=== PATIENT | male | born 1980 | race Hispanic/Latino ===

== ENCOUNTER 2022-12-26 18:47 | Inpatient (IN) | payer OTHER ==
[~2022-12-26] VITALS: Ht 167.6 cm; Wt 71.9 kg
[2022-12-26 20:41] LABS: BASOPHILS % (AUTO) 1.6 % (0.0-5.0); EOSINOPHILS % (AUTO) 12.4 % (0.0-8.0); HEMATOCRIT 44.3 % (42-54); MEAN CORPUSCULAR HEMOGLOBIN 28.5 pg (27.0-33.0); MEAN CORPUSCULAR HGB CONC 33.6 g/dL (32.0-36.0); MEAN CORPUSCULAR VOLUME 84.9 fL (79-99); MONOCYTES % (AUTO) 12.3 % (3.0-13.0); NEUTROPHILS % (AUTO) 51.4 % (40.0-77.0); PLATELET COUNT (AUTO) 238 K/uL (130-400); RED BLOOD CELL COUNT(AUTO) 5.22 MIL/uL (4.50-6.20); RED CELL DISTRIBUTION WIDTH 12.3 % (11.0-15.5); WHITE BLOOD COUNT (AUTO) 6.8 K/uL (4.8-10.8)
[2022-12-26 20:57] LABS: ALBUMIN 3.8 g/dL (3.5-5.0); CREATININE 0.9 mg/dL (0.5-1.5); POTASSIUM 4.2 mmol/L (3.5-5.1); TOTAL PROTEIN, SERUM 7.6 g/dL (6.0-8.3)
[2022-12-26] MEDS ORDERED: 0.9%NACL 1000ML 2,000 ML IV ONE (21:30)
[2022-12-26 22:02] LABS: APPEARANCE,URINE CLEAR (CLEAR); BILIRUBIN,URINE NEGATIVE (NEGATIVE); COLOR,URINE COLORLESS (YELLOW); GLUCOSE, URINE (UA) >=1000 mg/dL (NEGATIVE); KETONES,URINE 5 mg/dL (NEGATIVE); LEUKOCYTE ESTERASE ,URINE NEGATIVE Leu/uL (NEGATIVE); NITRATE,URINE NEGATIVE (NEGATIVE); OCCULT BLOOD,URINE NEGATIVE (NEGATIVE); PH,URINE 5.5 (5.0-8.0); PROTEIN,URINE NEGATIVE (NEGATIVE); UROBILINOGEN,URINE 0.2 mg/dL (0.2-1.0)
[2022-12-26 22:04] LABS: AMPHET/METH SCREEN,URINE NEGATIVE (NEGATIVE); BARBITURATE SCREEN, URINE NEGATIVE (NEGATIVE); BENZODIAZEPINES SCREEN,URINE NEGATIVE (NEGATIVE); CANNABINOID SCREEN,URINE NEGATIVE (NEGATIVE); COCAINE SCREEN,URINE POSITIVE (NEGATIVE); OPIATE SCREEN,URINE NEGATIVE (NEGATIVE); PHENCYCLIDINE SCREEN,URINE NEGATIVE (NEGATIVE)
[2022-12-26 22:07] LABS: SQUAMOUS EPITHELIAL CELL,UR RARE /HPF (0-2)
[2022-12-26] MEDS ORDERED: ASPIRIN 325MG TAB ONE (22:27)
[2022-12-26] MEDS ORDERED: ASPIRIN 325MG TAB PO ONE (22:30)
[2022-12-26 22:57] LABS: ABG BASE EXCESS -4.2 mmol/L (-2.0-3.0); ABG HCO3 20.6 mmol/L (21.0-28.0); ABG OXYGEN SATURATION 94.8 % (95.0-99.0); ABG PCO2 37 mmHg (35-48)
[2022-12-26] MEDS ORDERED: DIAZEPAM 5 MG/ML 2 ML SYG IVP ONE (23:30)
[2022-12-26] MEDS ORDERED: MAGNESIUM 2GM PREMIX 50ML 50 ML IV PRN (23:30)
[2022-12-26] MEDS ORDERED: ACETAMINOPHEN 325 MG TAB PO PRN ×2 (23:30)
[2022-12-26] MEDS ORDERED: POTASSIUM CHLORIDE 10% ELIXIR 20 MEQ/15 ML UDCUP PO PRN (23:30)
[2022-12-26] MEDS ORDERED: ONDANSETRON 4MG INJ IV PRN (23:30)
[2022-12-26] MEDS ORDERED: KETOROLAC 30MG VIAL (30MG/ML) IVP ONE (23:30)
[2022-12-26] MEDS ORDERED: MORPHINE 2 MG SYG IVP ONE (23:30)
[2022-12-26] MEDS ORDERED: POTASSIUM CHLORIDE 20MEQ/100ML 100 ML IV PRN (23:30)
[2022-12-26] MEDS ORDERED: KCL 20 MEQ ERTAB PO PRN (23:30)
[2022-12-26] MEDS ORDERED: DIAZEPAM 5 MG/ML 2 ML SYG IV PRN (23:30)
[2022-12-26] MEDS: LACTATED RINGERS 1000ML 1,000 ML IV SCH (23:59)
[2022-12-27] MEDS ORDERED: PHARMACY COMMUNICATION MISC SCH
[2022-12-27 06:40] LABS: BASOPHILS % (AUTO) 1.1 % (0.0-5.0); EOSINOPHILS % (AUTO) 8.2 % (0.0-8.0); HEMATOCRIT 39.1 % (42-54); LYMPHOCYTES % (AUTO) 30.6 % (21.0-51.0); MEAN CORPUSCULAR HEMOGLOBIN 28.7 pg (27.0-33.0); MEAN CORPUSCULAR HGB CONC 33.5 g/dL (32.0-36.0); MEAN CORPUSCULAR VOLUME 85.7 fL (79-99); MONOCYTES % (AUTO) 9.7 % (3.0-13.0); PLATELET COUNT (AUTO) 188 K/uL (130-400); RED BLOOD CELL COUNT(AUTO) 4.56 MIL/uL (4.50-6.20); RED CELL DISTRIBUTION WIDTH 12.3 % (11.0-15.5); WHITE BLOOD COUNT (AUTO) 8.2 K/uL (4.8-10.8)
[2022-12-27 06:52] LABS: CREATININE 0.7 mg/dL (0.5-1.5); MAGNESIUM 1.6 mg/dL (1.80-2.40); PHOSPHORUS 3.4 mg/dL (2.5-4.9); POTASSIUM 3.7 mmol/L (3.5-5.1)
[2022-12-27 06:57] LABS: HEMOGLOBIN A1C 13.9 % (4.0-6.0)
[2022-12-27] MEDS: INSULIN HUMULIN R 100 UNIT/ML 3ML SQ SCH ×4 (08:37→21:45)
[2022-12-27] MEDS: HEPARIN 5,000 UNIT VIAL SQ SCH ×3 (08:49→21:46)
[2022-12-27] MEDS: FAMOTIDINE 20MG TAB PO SCH ×2 (08:49→21:42)
[2022-12-27] MEDS: MORPHINE 2 MG SYG IV PRN ×2 (09:03→18:03)
[2022-12-27] MEDS: LACTATED RINGERS 1000ML 1,000 ML IV SCH ×2 (12:50→21:49)
[2022-12-27 16:15] VITALS: BP 150/63; PULSE 57; RESP 16
[2022-12-27 20:00] VITALS: BP 169/99; PULSE 84; RESP 18
[2022-12-27] MEDS ORDERED: INSULIN GLARGINE 100 UNITS/ML 10 ML VIAL SQ SCH (21:00)
[2022-12-27 21:17] VITALS: BP 140/92; PULSE 64; RESP 20
[2022-12-27 21:45] VITALS: O2SAT 98
[2022-12-27 23:18] VITALS: BP 145/87; PULSE 55; RESP 18
[2022-12-28] VITALS (8 sets, daily range): BP systolic 112–159; BP diastolic 69–96; PULSE 51–59; RESP 16–20; O2SAT 98–99
[2022-12-28] MEDS: LACTATED RINGERS 1000ML 1,000 ML IV SCH (01:31)
[2022-12-28] MEDS: INSULIN HUMULIN R 100 UNIT/ML 3ML SQ SCH ×8 (06:22→20:17)
[2022-12-28] MEDS: FAMOTIDINE 20MG TAB PO SCH ×2 (08:47→20:16)
[2022-12-28] MEDS: HEPARIN 5,000 UNIT VIAL SQ SCH ×3 (08:54→20:16)
[2022-12-28] MEDS ORDERED: INSULIN GLARGINE 100 UNITS/ML 10 ML VIAL SQ SCH (09:00)
[2022-12-28] MEDS ORDERED: PHARMACY COMMUNICATION MISC SCH (11:00)
[2022-12-28] MEDS ORDERED: DIPHENHYDRAMINE HCL 25 MG CAPSULE PO ONE (11:30)
[2022-12-28] MEDS ORDERED: [UNRECOGNIZED DRUG - OTHER] IJ ONE (13:00)
[2022-12-28] MEDS ORDERED: SODIUM CHLORIDE 0.9% IJ ONE (13:00)
[2022-12-29 04:00] VITALS: BP 103/68; PULSE 48; RESP 20
[2022-12-29] MEDS: INSULIN HUMULIN R 100 UNIT/ML 3ML SQ SCH ×6 (06:18→16:54)
[2022-12-29 07:35] VITALS: O2SAT 97
[2022-12-29] MEDS ORDERED: INSU100I35 SQ (07:48)
[2022-12-29] MEDS ORDERED: GLIM4TAB36 PO (07:48)
[2022-12-29] MEDS ORDERED: METF-444 PO (07:48)
[2022-12-29 07:59] VITALS: BP 113/72; PULSE 57; RESP 16
[2022-12-29] MEDS: FAMOTIDINE 20MG TAB PO SCH (08:16)
[2022-12-29] MEDS: HEPARIN 5,000 UNIT VIAL SQ SCH ×2 (08:17→14:00)
[2022-12-29] MEDS ORDERED: INSULIN GLARGINE 100 UNITS/ML 10 ML VIAL SQ SCH (09:00)
[2022-12-29 12:00] VITALS: BP 128/85; PULSE 85; RESP 17
[2022-12-29 15:42] VITALS: BP 135/80; PULSE 64; RESP 17
== END 2022-12-29 17:00 | disposition home or self-care (01) | DRG 918 ==
LOC: EDH 18:47 → EDHIP 18:48 → 3BH 12-27 16:30
PROVIDERS: ADMIT Internal Medicine; ATTEND Internal Medicine
DX: T63.311A Toxic effect of venom of black widow spider, accidental (unintentional), initial encounter (principal); F14.10 Cocaine abuse, uncomplicated; I10 Essential (primary) hypertension; E11.9 Type 2 diabetes mellitus without complications; Y93.89 Activity, other specified; Z87.891 Personal history of nicotine dependence; Z63.4 Disappearance and death of family member; Y92.89 Other specified places as the place of occurrence of the external cause; Y99.8 Other external cause status
CPT/HCPCS: 36415; 71045; 80048; 80053; 80305; 81001; 82010; 82550; 82803; 82948; 83036; 83605; 83690; 83735; 84100; 84478; 84484; 85025; 93005; G0378; J1644; J1815; J1885; J2270; J3360; J3475; J7030; J7120; Q0163